=== PATIENT | female | born 1980 | race Caucasian/White ===

== ENCOUNTER 2020-04-19 01:12 | Emergency (ER) | payer OTHER ==
[~2020-04-19] VITALS: Ht 175.3 cm; Wt 104.3 kg
[~2020-04-19 01:12] MED LIST: IBUPROFEN 800800 M1 PO; PERCOCET; PERCOCET 7.5-31 EACH PO; UNICOMPLEX M TA1 TA1 PO; ZYRTEC10 M5 PO
[2020-04-19 02:18] VITALS: BP 155/89
== END 2020-04-19 02:18 | disposition home or self-care (01) ==
LOC: M.ERS 01:12
DX: S50.11XA Contusion of right forearm, initial encounter (principal); Z79.899 Other long term (current) drug therapy; Z88.0 Allergy status to penicillin; X58.XXXA Exposure to other specified factors, initial encounter; Y93.72 Activity, wrestling; Y92.89 Other specified places as the place of occurrence of the external cause; Y99.8 Other external cause status